=== PATIENT | male | born 1955 | race Caucasian/White ===

== ENCOUNTER 2022-04-22 14:09 | Outpatient (REF) | payer OTHER, SELFPAY | END 2022-04-22 14:10 | disposition home or self-care (01) | LOC: LBN 14:09 | PROVIDERS: PCP Nurse Practitioner Family; Visit Provider Nurse Practitioner Family | DX: L02.611 Cutaneous abscess of right foot (principal); Z48.00 Encounter for change or removal of nonsurgical wound dressing | CPT/HCPCS: 87070; 87205 ==